=== PATIENT | female | born 1965 | race Two or more races ===

== ENCOUNTER 2021-08-22 08:17 | Emergency (ER) | payer MEDICAID, OTHER ==
[~2021-08-22] VITALS: Ht 160 cm; Wt 68.0 kg
[2021-08-22] MEDS ORDERED: MORPHINE SULFATE INJECTION 2 MG/ML SYRG IM ONE (10:45)
[2021-08-22] MEDS ORDERED: ONDANSETRON ODT 4 MG TAB PO ONE (10:45)
[2021-08-22 11:24] VITALS: BP 133/77
== END 2021-08-22 11:35 | disposition home or self-care (01) ==
LOC: EDBD 08:17 → ER 08:17
DX: M54.50 Low back pain, unspecified (principal)
CPT/HCPCS: 72070; 72100; 93005; 96372; 99284; J2270; Q0162